=== PATIENT | female | born 1935 | race Caucasian/White ===

== ENCOUNTER → 2016-07-04 | Outpatient (CLI) | payer MEDICARE ==
[~2016-07-04] MED LIST: ASPIRIN FOR CHI81 MG PO; CARVEDILOL12.5 MG PO; COZAAR50 MG PO; HYDROCHLOROTH12.5 M1 PO; HYDRODIURIL25 MG PO; NORVASC5 MG PO; PRILOSEC20 MG PO; SYNTHROID0.125 MG PO; ZOCOR20 MG PO; ZOCOR40 MG PO
== END | disposition home or self-care (01) ==
LOC: MAMMO 03:49
DX: Z12.31 Encounter for screening mammogram for malignant neoplasm of breast (principal); R92.1 Mammographic calcification found on diagnostic imaging of breast

== ENCOUNTER → 2018-07-22 | Outpatient (CLI) | payer MEDICARE | END | disposition home or self-care (01) | LOC: MAMMO 07-19 14:16 | DX: Z12.31 Encounter for screening mammogram for malignant neoplasm of breast (principal); M85.89 Other specified disorders of bone density and structure, multiple sites; E03.9 Hypothyroidism, unspecified; M19.90 Unspecified osteoarthritis, unspecified site; R29.890 Loss of height; Z78.0 Asymptomatic menopausal state ==

== ENCOUNTER → 2018-11-03 | Outpatient (CLI) | payer MEDICARE ==
[2018-11-03 09:28] LABS: CREATININE 1.09 mg/dL (0.55-1.02); POTASSIUM 4.4 mmol/L (3.5-5.1)
[2018-11-03 09:38] LABS: THYROID STIM HORMONE (HS) 2.27 uIU/ml (0.358-4.75)
== END | disposition home or self-care (01) ==
LOC: LAB 08:34
PROVIDERS: Family Medicine
DX: E03.9 Hypothyroidism, unspecified (principal); E78.2 Mixed hyperlipidemia; E10.9 Type 1 diabetes mellitus without complications

== ENCOUNTER 2021-05-06 07:56 | Emergency (ER) | payer MEDICARE ==
[~2021-05-06] VITALS: Ht 162.5 cm; Wt 90.7 kg
[2021-05-06] MEDS ORDERED: COLCRYS0.6 M1 PO (08:14)
[2021-05-06] MEDS ORDERED: KLONOPIN0.5 MG PO (08:15)
[2021-05-06] MEDS ORDERED: ZOLOFT100 MG PO (08:15)
[2021-05-06 08:49] LABS: BASO % 0.3 % (0.0-1.0); EOS # 0.1 10*3/uL (0.0-0.4); EOS % 0.9 % (1.0-4.0); HEMATOCRIT 36.7 % (37.0-47.0); LYMPH # 0.7 10*3/uL (1.3-4.4); LYMPH % 7.5 % (27.0-41.0); MEAN CELL VOLUME 91.8 fl (81.0-99.0); MEAN CORPUSCULAR HGB 30.3 pg (27.0-31.0); MEAN PLATELET VOLUME 10.6 fl (9.6-12.3); MONO # 0.6 10*3/uL (0.1-1.0); MONO % 7.1 % (3.0-9.0); NEUT # 7.5 10*3/uL (2.3-7.9); NEUT % 84.1 % (47.0-73.0); PLATELET COUNT AUTOMATED 178 10*3/uL (130-400); RED CELL DISTRI WIDTH 12.7 % (0-14.5); WHITE BLOOD COUNT 8.9 10*3/uL (4.8-10.8)
[2021-05-06 09:01] LABS: ACT PARTIAL THROMBO TIME 31.4 SECONDS (20.0-32.1)
[2021-05-06 09:11] LABS: ALBUMIN 3.4 gm/dl (3.1-4.5); ALKALINE PHOSPHATASE 60 U/L (45-117); BUN 21 mg/dl (7-24); CHLORIDE 105 mmol/L (98-107); CREATININE 1.07 mg/dL (0.55-1.02); LIPASE 100 U/L (73-393); POTASSIUM 3.7 mmol/L (3.5-5.1); SGOT/AST 14 IU/L (3-35); SGPT/ALT 20 U/L (12-78); SODIUM 137 mmol/L (136-145)
[2021-05-06 11:08] LABS: BILIRUBIN Negative (Negative); BLOOD Trace-Lysed (Negative); CLARITY Clear (Clear); COLOR Yellow (Yellow); GLUCOSE Negative (Negative); KETONE Negative (Negative); LEUKO ESTERASE Trace (Negative); NITRITE Negative (Negative); UROBILINOGEN 0.2 E.U./dl (0.0-1.0)
== END 2021-05-06 12:07 | disposition home or self-care (01) ==
LOC: ED 07:56
PROVIDERS: Emergency Medicine
DX: S00.93XA Contusion of unspecified part of head, initial encounter (principal); Z79.899 Other long term (current) drug therapy; Z98.890 Other specified postprocedural states; W18.39XA Other fall on same level, initial encounter; Y93.89 Activity, other specified; Y92.89 Other specified places as the place of occurrence of the external cause; Y99.8 Other external cause status

== ENCOUNTER → 2021-06-03 | Outpatient (CLI) | payer MEDICARE ==
[~2021-06-03] MED LIST changes: +COLCRYS0.6 M1 PO; +KLONOPIN0.5 MG PO; +ZOLOFT100 MG PO
== END | disposition home or self-care (01) ==
LOC: CARD 10:30
PROVIDERS: ATTEND Internal Medicine Cardiovascular Disease
DX: R01.1 Cardiac murmur, unspecified (principal); I10 Essential (primary) hypertension

== ENCOUNTER → 2021-07-03 | Outpatient (CLI) | payer MEDICARE ==
[2021-07-03 12:59] LABS: THYROID STIM HORMONE (HS) 1.54 uIU/ml (0.358-4.75)
== END | disposition home or self-care (01) ==
LOC: LAB 12:10
PROVIDERS: ATTEND Family Medicine
DX: E78.2 Mixed hyperlipidemia (principal); E03.9 Hypothyroidism, unspecified; M13.0 Polyarthritis, unspecified

== ENCOUNTER → 2022-01-06 | Outpatient (CLI) | payer MEDICARE ==
[2022-01-06 09:58] LABS: POTASSIUM 3.9 mmol/L (3.5-5.1)
[2022-01-06 10:03] LABS: CREATININE 1.08 mg/dL (0.55-1.02)
== END ==
LOC: LAB 09:08
PROVIDERS: ATTEND Physician Assistant
DX: I10 Essential (primary) hypertension (principal)

== ENCOUNTER → 2022-07-04 | Outpatient (CLI) | payer MEDICARE ==
[2022-07-04 11:30] LABS: BASO % 0.8 % (0.0-1.0); EOS # 0.2 10*3/uL (0.0-0.4); EOS % 3.6 % (1.0-4.0); HEMATOCRIT 40.5 % (37.0-47.0); LYMPH % 19.9 % (27.0-41.0); MEAN CELL VOLUME 95.5 fl (81.0-99.0); MEAN CORPUSCULAR HGB 30.2 pg (27.0-31.0); MEAN CORPUSCULAR HGB CONC 31.6 g/dl (33.0-37.0); MEAN PLATELET VOLUME 10.8 fl (9.6-12.3); MONO # 0.5 10*3/uL (0.1-1.0); MONO % 10.9 % (3.0-9.0); NEUT # 3.1 10*3/uL (2.3-7.9); NEUT % 64.6 % (47.0-73.0); PLATELET COUNT AUTOMATED 189 10*3/uL (130-400); RED BLOOD COUNT 4.24 10*6/uL (4.10-5.10); RED CELL DISTRI WIDTH 12.5 % (0-14.5); WHITE BLOOD COUNT 4.8 10*3/uL (4.8-10.8)
[2022-07-04 11:54] LABS: BILIRUBIN Negative (Negative); BLOOD 1+ (Negative); CLARITY Clear (Clear); COLOR Yellow (Yellow); GLUCOSE Negative (Negative); KETONE Negative (Negative); LEUKO ESTERASE Trace (Negative); NITRITE Negative (Negative); PH 5.5 (4.5-8.0); UROBILINOGEN 0.2 E.U./dl (0.0-1.0)
[2022-07-04 12:14] LABS: BACTERIA TRACE
[2022-07-04 12:15] LABS: MUCOUS 1+
[2022-07-04 12:55] LABS: POTASSIUM 4.3 mmol/L (3.4-5.1); THYROID STIM HORMONE (HS) 1.761 uIU/ml (0.550-4.780); TOTAL PROTEIN 6.5 gm/dL (6.0-8.0); URIC ACID 7.1 mg/dL (3.1-7.8)
== END | disposition home or self-care (01) ==
LOC: LAB 10:45
PROVIDERS: ATTEND Family Medicine
DX: I10 Essential (primary) hypertension (principal); E78.2 Mixed hyperlipidemia; M10.9 Gout, unspecified; N30.00 Acute cystitis without hematuria; E03.9 Hypothyroidism, unspecified; R53.83 Other fatigue

== ENCOUNTER → 2023-10-29 | Outpatient (CLI) | payer MEDICARE | END | disposition home or self-care (01) | LOC: US 01:06 | PROVIDERS: ATTEND Internal Medicine | DX: I65.23 Occlusion and stenosis of bilateral carotid arteries (principal); R09.89 Other specified symptoms and signs involving the circulatory and respiratory systems; R01.1 Cardiac murmur, unspecified; I11.9 Hypertensive heart disease without heart failure; I34.0 Nonrheumatic mitral (valve) insufficiency; I27.20 Pulmonary hypertension, unspecified ==

== ENCOUNTER → 2023-11-10 | Outpatient (CLI) | payer MEDICARE ==
[2023-11-10 11:17] LABS: BASO % 0.5 % (0.0-1.0); EOS # 0.2 10*3/uL (0.0-0.4); EOS % 2.7 % (1.0-4.0); HEMATOCRIT 39.1 % (37.0-47.0); LYMPH # 0.8 10*3/uL (1.3-4.4); LYMPH % 15.2 % (27.0-41.0); MEAN CELL VOLUME 93.1 fl (81.0-99.0); MEAN CORPUSCULAR HGB 30.5 pg (27.0-31.0); MEAN CORPUSCULAR HGB CONC 32.7 g/dl (33.0-37.0); MEAN PLATELET VOLUME 9.8 fl (9.6-12.3); MONO # 0.5 10*3/uL (0.1-1.0); MONO % 9.6 % (3.0-9.0); NEUT % 71.8 % (47.0-73.0); PLATELET COUNT AUTOMATED 175 10*3/uL (130-400); RED CELL DISTRI WIDTH 13.3 % (0-14.5); WHITE BLOOD COUNT 5.5 10*3/uL (4.8-10.8)
[2023-11-10 11:47] LABS: ALKALINE PHOSPHATASE 66 U/L (46-116); BUN 21 mg/dl (9-23); CHLORIDE 105 mmol/L (98-107); CHOLESTEROL 179 mg/dL (<200); FREE T4 1.49 ng/dl (0.89-1.76); LDL CHOLESTEROL 111 mg/dL (9-159); POTASSIUM 4.1 mmol/L (3.4-5.1); SGPT/ALT 19 U/L (5-49); TOTAL PROTEIN 6.6 gm/dL (6.0-8.0); TRIGLYCERIDES 48 mg/dl (<150)
[2023-11-10 11:58] LABS: VITAMIN D, 25-HYDROXY 42.4 ng/mL (30-100)
== END | disposition home or self-care (01) ==
LOC: LAB 10:58
PROVIDERS: ATTEND Internal Medicine
DX: I10 Essential (primary) hypertension (principal); E03.9 Hypothyroidism, unspecified

== ENCOUNTER → 2023-12-16 | Outpatient (CLI) | payer MEDICARE | END | disposition home or self-care (01) | LOC: US 00:43 | PROVIDERS: ATTEND Internal Medicine Nephrology | DX: N28.1 Cyst of kidney, acquired (principal); N18.31 Chronic kidney disease, stage 3a ==

== ENCOUNTER → 2024-01-11 | Outpatient (CLI) | payer MEDICARE ==
[2024-01-11 12:44] LABS: BILIRUBIN Negative (Negative); BLOOD 2+ (Negative); CLARITY Clear (Clear); COLOR Yellow (Yellow); GLUCOSE Negative (Negative); KETONE Negative (Negative); LEUKO ESTERASE 1+ (Negative); NITRITE Negative (Negative); PH 5.5 (4.5-8.0); SPECIFIC GRAVITY 1.015 (1.001-1.030)
[2024-01-11 12:56] LABS: BACTERIA 1+; MUCOUS 2+
[2024-01-11 13:08] LABS: URINE CREATININE RANDOM 117.36 mg/dL
[2024-01-12 04:06] LABS: TOTAL PROTEIN, SERUM 6.4 g/dL (6.0-8.5)
[2024-01-12 05:06] LABS: HBSAG Negative (Negative); HEP B CORE AB, IGM Negative (Negative); HEPATITIS C ANTIBODY Non Reactive (Non Reactive)
[2024-01-12 14:09] LABS: A/G RATIO 1.5 (0.7-1.7); ALBUMIN 3.8 g/dL (2.9-4.4); ALPHA-1-GLOBULIN 0.2 g/dL (0.0-0.4); ALPHA-2-GLOBULIN 0.6 g/dL (0.4-1.0); BETA GLOBULIN 0.9 g/dL (0.7-1.3); GLOBULIN, TOTAL 2.6 g/dL (2.2-3.9)
[2024-01-12 15:07] LABS: ATYPICAL pANCA <1:20 titer (Neg:<1:20); CYTOPLASMIC (C-ANCA) <1:20 titer (Neg:<1:20); PERINUCLEAR (P-ANCA) <1:20 titer (Neg:<1:20)
[2024-01-12 16:08] LABS: FREE KAPPA LIGHT CHAINS 34.7 mg/L (3.3-19.4); FREE LAMBDA LIGHT CHAINS 27.1 mg/L (5.7-26.3); KAPPA/LAMBDA RATIO 1.28 (0.26-1.65)
[2024-01-13 13:07] LABS: ALPHA-2-GLOBULIN, URINE 2.7 % (.); BETA GLOBULIN, URINE 8.8 % (.); GAMMA GLOBULIN, URINE 6.4 % (.); M-SPIKE, % Not Observed % (Not Observed)
[2024-01-13 21:06] LABS: ANTI MPO ANTIBODIES <0.2 units (0.0-0.9); ANTI PR3 ANTIBODIES <0.2 units (0.0-0.9)
== END | disposition home or self-care (01) ==
LOC: LAB 12:07
PROVIDERS: ATTEND Internal Medicine Nephrology
DX: I12.9 Hypertensive chronic kidney disease with stage 1 through stage 4 chronic kidney disease, or unspecified chronic kidney disease (principal); N18.31 Chronic kidney disease, stage 3a; R80.9 Proteinuria, unspecified; E83.9 Disorder of mineral metabolism, unspecified; E78.49 Other hyperlipidemia; R83.9 Unspecified abnormal finding in cerebrospinal fluid; Z79.899 Other long term (current) drug therapy

== ENCOUNTER → 2024-01-25 | Outpatient (CLI) | payer MEDICARE | END | disposition home or self-care (01) | LOC: LAB 13:24 | PROVIDERS: ATTEND Internal Medicine Nephrology | DX: R76.8 Other specified abnormal immunological findings in serum (principal) ==